=== PATIENT | male | born 1975 | race Caucasian/White ===

== ENCOUNTER 2016-08-27 12:04 | Emergency (ER) | payer OTHER ==
--- NOTE | 2016-08-27 14:51 | XR ---
EXAM TYPE: LUMBAR SPINE X RAY SERIES COMPARISON: 12/26/2014 HISTORY: Pain TECHNIQUE: three views are submitted. FINDINGS: Alignment is anatomic. The pedicles are intact. The transverse processes are intact. There is no s pondylolysis or spondylolisthesis. Hypertrophic changes of the spine noted. There is mild degenerati ve disc disease L5-S1. Facet arthropathy involving the lower lumbar spine noted. IMPRESSION: 1. At L5-S1 there is degenerative disc disease with facet arthropathy..
[2016-08-27 14:54] VITALS: BP 125/79; PULSE 63; RESP 18; TEMP 98
--- NOTE | 2016-08-27 14:59 | ED ---
Back Pain HPI - General Chief Complaint: Back Pain/Injury Stated Complaint: Unknown Bruise/Back Pain Time Seen by Provider: 08/27/16 14:16 Source: patient, RN notes reviewed Limitations: no limitations - History of Present Illness Initial Comments: Patient is a 40-year-old male with chief complaint of an unknown bruise over his lower spine. Patient reports that he is doing physical therapy for chronic lower back pain and therapist noticed it yesterday. Patient reports that he does have some pain that radiates down his legs. He denies any acute injury to cause the bruising. Patient states that the area is sensitive. He states that he has had no loss of bowel or bladder control and is able to ambulate. Patient reports that he took Motrin at home with little relief of the pain radiating down his legs. Patient denies any recent fever, chills, shortness of breath, chest pain, back pain, abdominal pain, nausea vomiting, numbness or tingling, dysuria or hematuria, constipation or diarrhea, headaches or visual changes, or any other current symptoms - Related Data Home Medications Medication Instructions Recorded Confirmed Lisinopril [Zestril] 40 mg PO DAILY 12/23/13 05/16/15 Gabapentin [Gabapentin] 800 mg PO QID 05/16/15 05/16/15 HYDROcodone/APAP 10-325MG [[place] 1 tab PO Q4HR PRN 05/16/15 05/16/15 10-325] amLODIPine BESYLATE [Amlodipine 10 mg PO DAILY 05/16/15 05/16/15 Besylate] carBAMazepine [carBAMazepine CHEW] 100 mg PO BID 05/16/15 05/16/15 Previous Rx's Medication Instructions Recorded Diazepam [Valium] 5 mg PO TID PRN #10 tab 12/23/13 Ibuprofen [Motrin] 800 mg PO Q8HR PRN #30 tab 12/23/13 Acetaminophen-Codeine 300-30mg 1 tab PO Q4H PRN #10 tablet 08/27/16 [Tylenol #3] Dexamethasone 0.75 mg PO DAILY #12 tab 08/27/16 Allergies Allergy/AdvReac Type Severity Reaction Status Date / Time No Known Allergies Allergy Verified 08/27/16 12:31 Review of Systems ROS Statement: Those systems with pertinent positive or pertinent negative responses have been documented in the HPI. ROS Other: All systems not noted in ROS Statement are negative. Past Medical History Past Medical History: Hypertension, Osteoarthritis (OA) Additional Past Medical History / Comment(s): chronic neck pain, trigeminal neuralgia, carpal tunnel History of Any Multi-Drug Resistant Organisms: None Reported Past Surgical History: Appendectomy Additional Past Surgical History / Comment(s): feet surgery, neck surgery Past Psychological History: Anxiety, Depression Smoking Status: Current every day smoker Past Alcohol Use History: Rare Past Drug Use History: Marijuana General Exam Limitations: no limitations General appearance: alert, in no apparent distress Head exam: Present: atraumatic, normocephalic, normal inspection Eye exam: Present: normal appearance, PERRL, EOMI. Absent: scleral icterus, conjunctival injection, periorbital swelling ENT exam: Present: normal exam, mucous membranes moist Neck exam: Present: normal inspection. Absent: tenderness, meningismus, lymphadenopathy Respiratory exam: Present: normal lung sounds bilaterally. Absent: respiratory distress, wheezes, rales, rhonchi, stridor Cardiovascular Exam: Present: regular rate, normal rhythm, normal heart sounds. Absent: systolic murmur, diastolic murmur, rubs, gallop, clicks GI/Abdominal exam: Present: soft, normal bowel sounds. Absent: distended, tenderness, guarding, rebound, rigid Extremities exam: Present: normal inspection, full ROM, normal capillary refill. Absent: tenderness, pedal edema, joint swelling, calf tenderness Back exam: Present: normal inspection, full ROM, tenderness (Patient reports tenderness over the lumbar spine.), other (Faint bruising over her lumbar spine approximately L5 through L2.) Neurological exam: Present: alert, oriented X3, CN II-XII intact Psychiatric exam: Present: normal affect, normal mood Skin exam: Present: warm, dry, intact, normal color. Absent: rash Course Vital Signs 08/27/16 08/27/16 12:27 14:53 Temperature 98.8 F 98.0 F Pulse Rate 66 63 Respiratory 17 18 Rate Blood Pressure 142/95 125/79 O2 Sat by Pulse 96 98 Oximetry Medical Decision Making - Medical Decision Making Patient is a 40-year-old male with chief complaint of an unknown bruise over his lower spine. Patient reports that he is doing physical therapy for chronic lower back pain and therapist noticed it yesterday. Patient reports that he does have some pain that radiates down his legs. He denies any acute injury to cause the bruising. Patient states that the area is sensitive. He states that he has had no loss of bowel or bladder control and is able to ambulate. Patient reports that he took Motrin at home with little relief of the pain radiating down his legs. Lumbar spine x-ray was obtained. There is evidence of irregularities at L5 through S1.. Patient has no saddle anesthesias or unable to ambulate. Patient was given a prescription for dexamethasone further radiculopathy as well as Tylenol 3 for pain. I discussed that are not sure where the bruising is came from. I did is I spent apply ice to the lower back. If this is a possibility of early shingles I discussed that they need to continue monitoring the area of any blistering to return the emergency Department her primary care provider once. - Radiology Data Radiology results: report reviewed L5 through S1 degenerative disc disease with facet arthropathy Disposition Clinical Impression: Degeneration of intervertebral disc at L5-S1 level, Superficial bruising of back Disposition: HOME SELF-CARE Condition: Good Instructions: Chronic Back Pain (ED) Additional Instructions: Patient advised to follow-up with physical therapy apply heat and ice over the area. Children emergency department if any alarming signs or symptoms occur. Prescriptions: Acetaminophen-Codeine 300-30mg [Tylenol #3] 1 tab PO Q4H PRN #10 tablet PRN Reason: Pain Dexamethasone 0.75 mg PO DAILY #12 tab Referrals: Brianne Jorge MD [Primary Care Provider] - 1-2 days Time of Disposition: 14:58
== END 2016-08-27 15:05 | disposition home or self-care (01) ==
LOC: EC 12:04
DX: S30.0XXA Contusion of lower back and pelvis, initial encounter (principal); M51.37 Other intervertebral disc degeneration, lumbosacral region; I10 Essential (primary) hypertension; F17.200 Nicotine dependence, unspecified, uncomplicated; Z79.899 Other long term (current) drug therapy; X58.XXXA Exposure to other specified factors, initial encounter
CPT/HCPCS: 72100; 99283

== ENCOUNTER → 2017-02-18 | Outpatient (CLI) | payer MEDICARE, OTHER ==
[2017-02-18 12:28] LABS: Blood Urea Nitrogen 15 mg/dL (9-20); Non-African American GFR(MDRD) 60 (>60 ml/min/1.73 sqM)
--- NOTE | 2017-02-19 01:40 | MR ---
EXAMINATION TYPE: MR lumbar spine wo con DATE OF EXAM: 02/18/2017 COMPARISON: NONE HISTORY: Lumbago TECHNIQUE: Multiplanar, multisequence images of the lumbar spine were acquired. Lumbar vertebra have normal alignment. Disc spaces are fairly well-maintained. There is slight decrea sed signal in the disks at L4-5 and L5-S1. There are small posterior central disc herniations at L3-4 and L5-S1. There is no paraspinal mass. There is developmentally adequate spinal canal. Sacroiliac joints appear normal. The neural foramina are widely patent. IMPRESSION: Small posterior lumbar disc herniations at L3-4 and L5-S1. No spinal stenosis.
--- NOTE | 2017-02-19 01:44 | MR ---
EXAMINATION TYPE: MR cervical spine wo/w con DATE OF EXAM: 02/18/2017 COMPARISON: 12/26/2014 HISTORY: cervicalgia TECHNIQUE: Multiplanar, multisequence images of the cervical spine were acquired utilizing 12 mL intravenous [place] avist gadolinium contrast. Diffusion weighted imaging was performed. Cervical vertebra have normal alignment. There is metal artifact from anterior fusion surgery at C4 C 5 C6 level. Detail is limited at this level due to metal artifact. There is a large posterior disc he rniation at C6-7 with narrowing of the spinal canal. There is no evidence of edema in the cervical sp inal cord. The canal is narrowed to 7 mm at C6-7. There is a small posterior disc bulge at C4-5. Brai nstem is intact. There is no sign of compression fracture. There is no pathologic enhancement. IMPRESSION: There is multilevel fusion surgery. There is a moderate sized posterior C6-7 cervical disc herniation and endplate spur formation with 7 mm moderate spinal stenosis. This is not changed in size compared to old exam. There is clearing of the cord edema at C6-7 level compared to old exam.
== END | disposition home or self-care (01) ==
LOC: RADMRIMAIN 11:39
PROVIDERS: ATTEND Psychiatry & Neurology Neurology
DX: M48.02 Spinal stenosis, cervical region (principal); M50.223 Other cervical disc displacement at C6-C7 level; M51.27 Other intervertebral disc displacement, lumbosacral region; Z98.1 Arthrodesis status
CPT/HCPCS: 82565; 84520; 72148; 72156; A9581

== ENCOUNTER 2017-11-22 11:37 | Emergency (ER) | payer MEDICARE, OTHER ==
[2017-11-22 11:55] VITALS: BP 147/94; PULSE 68; RESP 18; TEMP 98.5
--- NOTE | 2017-11-22 12:23 | ED ---
Skin/Abscess/FB HPI - General Chief complaint: Skin/Abscess/Foreign Body Stated complaint: Infection Time Seen by Provider: 11/22/17 12:02 Source: patient, RN notes reviewed, old records reviewed Mode of arrival: ambulatory Limitations: no limitations - History of Present Illness Initial comments: 2-year-old male chief complaint of paronychia on his left thumb. Patient reports that he noticed over the past day that he had some swelling and irritation over the corner of the nail bed. Patient reports that he has no streaking up the arm. States it feels like his stomach throbbing. He reports these have some pus coming from the area earlier today. For range of motion of the thumb. Patient denies any recent fever, chills, shortness of breath, chest pain, back pain, abdominal pain, nausea vomiting, numbness or tingling, dysuria or hematuria, constipation or diarrhea, headaches or visual changes, or any other current symptoms - Related Data Home Medications Medication Instructions Recorded Confirmed Lisinopril [Zestril] 40 mg PO DAILY 12/23/13 05/16/15 Gabapentin [Gabapentin] 800 mg PO QID 05/16/15 05/16/15 HYDROcodone/APAP 10-325MG [[place] 1 tab PO Q4HR PRN 05/16/15 05/16/15 10-325] amLODIPine BESYLATE [Amlodipine 10 mg PO DAILY 05/16/15 05/16/15 Besylate] carBAMazepine [carBAMazepine CHEW] 100 mg PO BID 05/16/15 05/16/15 Previous Rx's Medication Instructions Recorded Diazepam [Valium] 5 mg PO TID PRN #10 tab 12/23/13 Ibuprofen [Motrin] 800 mg PO Q8HR PRN #30 tab 12/23/13 Acetaminophen-Codeine 300-30mg 1 tab PO Q4H PRN #10 tablet 08/27/16 [Tylenol #3] Dexamethasone 0.75 mg PO DAILY #12 tab 08/27/16 Sulfamethox-Tmp 800-160Mg [Bactrim 1 tab PO Q12HR #14 tab 11/22/17 DS 800-160 mg] Allergies Allergy/AdvReac Type Severity Reaction Status Date / Time No Known Allergies Allergy Verified 11/22/17 11:56 Review of Systems ROS Statement: Those systems with pertinent positive or pertinent negative responses have been documented in the HPI. ROS Other: All systems not noted in ROS Statement are negative. Past Medical History Past Medical History: Hypertension, Osteoarthritis (OA) Additional Past Medical History / Comment(s): chronic neck pain, trigeminal neuralgia, carpal tunnel History of Any Multi-Drug Resistant Organisms: None Reported Past Surgical History: Appendectomy Additional Past Surgical History / Comment(s): feet surgery, neck surgery, electrostimulis device in upper back Past Psychological History: Anxiety, Depression Smoking Status: Current every day smoker Past Alcohol Use History: Rare Past Drug Use History: Marijuana General Exam - General Exam Comments Initial Comments: This is a 42-year-old male. Alert and oriented. No significant distress. Limitations: no limitations General appearance: alert, in no apparent distress Head exam: Present: atraumatic, normocephalic, normal inspection Eye exam: Present: normal appearance, PERRL, EOMI. Absent: scleral icterus, conjunctival injection, periorbital swelling ENT exam: Present: normal exam, mucous membranes moist Neck exam: Present: normal inspection. Absent: tenderness, meningismus, lymphadenopathy Respiratory exam: Present: normal lung sounds bilaterally. Absent: respiratory distress, wheezes, rales, rhonchi, stridor Cardiovascular Exam: Present: regular rate, normal rhythm, normal heart sounds. Absent: systolic murmur, diastolic murmur, rubs, gallop, clicks Left Forearm Wrist exam: Present: normal inspection, full ROM Hand Wrist exam: Present: normal inspection, full ROM, erythema (Some minor erythema over the left thumb nail bed consistent with paronychia.) Neuro motor exam: Present: wrist extension intact, thumb opposition intact, thumb IP flexion intact, thumb adduction intact, fingers 2-5 abduction intact Vascular: Present: normal capillary refill Neurological exam: Present: alert, oriented X3 Psychiatric exam: Present: normal affect, normal mood Course Vital Signs 11/22/17 11:52 Temperature 98.5 F Pulse Rate 68 Respiratory 18 Rate Blood Pressure 147/94 O2 Sat by Pulse 97 Oximetry Procedures - Incision & Drainage Site: upper extremity (Left thumb) I&D Drainage Obtained: Pus, Serous Culture Obtained?: Yes Patient Tolerated Procedure: well, no complications Medical Decision Making - Medical Decision Making Patient is a 42-year-old male chief complaint of erythema and pain over his left thumb near the nail. He is evidence of paronychia. I did perform incision and drainage. Culture obtained. We'll start the Patient on Bactrim his history of MRSA. Discussed warm soaks. Discussed appropriate follow-up with PCP. All questions answered and return parameters were discussed. Disposition Clinical Impression: Paronychia Disposition: HOME SELF-CARE Condition: Good Instructions: Paronychia (ED) Additional Instructions: Patient is to do warm soaks over the thumb. Take antibiotics. Keep the area clean and dry and use antibiotic ointment. Follow-up with primary care provider. Prescriptions: Sulfamethox-Tmp 800-160Mg [Bactrim DS 800-160 mg] 1 tab PO Q12HR #14 tab Is patient prescribed a controlled substance at d/c from ED?: No When asked, does pt state using other controlled substances?: No If prescribed controlled substance>3 days was MAPS reviewed?: No If opioid is for acute pain is fill amount 7 days or less?: No If Rx opioid, was Start Talking consent form obtained?: No Referrals: Brianne Jorge MD [Primary Care Provider] - 1-2 days Time of Disposition: 12:22
== END 2017-11-22 12:42 | disposition home or self-care (01) ==
LOC: EC 11:37
DX: L03.012 Cellulitis of left finger (principal); I10 Essential (primary) hypertension; F32.9 Major depressive disorder, single episode, unspecified; F41.9 Anxiety disorder, unspecified; F17.200 Nicotine dependence, unspecified, uncomplicated; Z79.899 Other long term (current) drug therapy
CPT/HCPCS: 10060; 87070; 87077; 87186; 87205; 99283

== ENCOUNTER → 2017-12-03 | Outpatient (CLI) | payer MEDICARE, OTHER ==
[2017-12-03 09:49] LABS: Basophils % (A) 1 %; Eosinophils % (A) 0 %; HCT 42.8 % (39.0-53.0); HGB 14.8 gm/dL (13.0-17.5); Lymphocytes # (A) 2.9 k/uL (1.0-4.8); Lymphocytes % (A) 40 %; MCH 31.2 pg (25.0-35.0); MCHC 34.5 g/dL (31.0-37.0); MCV 90.4 fL (80.0-100.0); Mean Platelet Volume 7.5; Monocytes # (A) 0.5 k/uL (0-1.0); Monocytes % (A) 7 %; Neutrophils # (A) 3.7 k/uL (1.3-7.7); Neutrophils % (A) 51 %; Platelet Count 221 k/uL (150-450); RBC 4.73 m/uL (4.30-5.90); RDW 13.9 % (11.5-15.5); WBC 7.3 k/uL (3.8-10.6)
== END | disposition home or self-care (01) ==
LOC: LABWHC1 09:08
PROVIDERS: ATTEND Physician Assistant
DX: G40.909 Epilepsy, unspecified, not intractable, without status epilepticus (principal)
CPT/HCPCS: 36415; 80156; 85025

== ENCOUNTER 2019-04-26 11:29 | Emergency (ER) | payer MEDICARE, OTHER ==
--- NOTE | 2019-04-26 12:23 | ED ---
ENT HPI - General Chief complaint: Dental/Oral Stated complaint: Abcess in mouth Time Seen by Provider: 04/26/19 11:46 Source: patient, RN notes reviewed Mode of arrival: ambulatory Limitations: no limitations - History of Present Illness Initial comments: 43-year-old male presents emergency Department chief complaint of left-sided jaw swelling. Patient states that it started last couple days. Patient states he has no dentition he states he's had TEETH removed. Patient denies fevers, chills. He states it does wax and wane in size. Patient denies any trismus. Patient denies any swelling, neck pain or neck stiffness. - Related Data Home Medications Medication Instructions Recorded Confirmed Lisinopril [Zestril] 40 mg PO DAILY 12/23/13 05/16/15 Gabapentin 800 mg PO QID 05/16/15 05/16/15 HYDROcodone/APAP 10-325MG [[place] 1 tab PO Q4HR PRN 05/16/15 05/16/15 10-325] amLODIPine BESYLATE [Amlodipine 10 mg PO DAILY 05/16/15 05/16/15 Besylate] carBAMazepine [carBAMazepine CHEW] 100 mg PO BID 05/16/15 05/16/15 Previous Rx's Medication Instructions Recorded Diazepam [Valium] 5 mg PO TID PRN #10 tab 12/23/13 Ibuprofen [Motrin] 800 mg PO Q8HR PRN #30 tab 12/23/13 Acetaminophen-Codeine 300-30mg 1 tab PO Q4H PRN #10 tablet 08/27/16 [Tylenol #3] Dexamethasone 0.75 mg PO DAILY #12 tab 08/27/16 Sulfamethox-Tmp 800-160Mg [Bactrim 1 tab PO Q12HR #14 tab 11/22/17 DS 800-160 mg] Amoxicillin/Potassium Clav 1 tab PO Q12HR #20 tab 04/26/19 [Augmentin 875-125 Tablet] Allergies Allergy/AdvReac Type Severity Reaction Status Date / Time No Known Allergies Allergy Verified 11/22/17 11:56 Review of Systems ROS Statement: Those systems with pertinent positive or pertinent negative responses have been documented in the HPI. ROS Other: All systems not noted in ROS Statement are negative. Past Medical History Past Medical History: Hypertension, Osteoarthritis (OA) Additional Past Medical History / Comment(s): chronic neck pain, trigeminal neuralgia, carpal tunnel History of Any Multi-Drug Resistant Organisms: MRSA Date of last positivie culture/infection: 11/22/17 MDRO Source:: finger Past Surgical History: Appendectomy Additional Past Surgical History / Comment(s): feet surgery, neck surgery, electrostimulis device in upper back Past Psychological History: Anxiety, Depression Smoking Status: Current every day smoker Past Alcohol Use History: Rare Past Drug Use History: Marijuana General Exam Limitations: no limitations General appearance: alert, in no apparent distress Head exam: Present: atraumatic, normocephalic, normal inspection Eye exam: Present: normal appearance, PERRL, EOMI. Absent: scleral icterus, conjunctival injection, periorbital swelling ENT exam: Present: mucous membranes moist, TM's normal bilaterally, normal external ear exam, other (Mild left-sided submandibular swelling, mild tenderness no erythema no trismus). Absent: normal exam, normal oropharynx (No dentition noted) Neck exam: Present: normal inspection, full ROM. Absent: tenderness, meningismus, lymphadenopathy Respiratory exam: Present: normal lung sounds bilaterally. Absent: respiratory distress, wheezes, rales, rhonchi, stridor Cardiovascular Exam: Present: regular rate, normal rhythm, normal heart sounds. Absent: systolic murmur, diastolic murmur, rubs, gallop, clicks Course Vital Signs 04/26/19 11:42 Temperature 97.7 F Pulse Rate 97 Respiratory 18 Rate Blood Pressure 147/100 O2 Sat by Pulse 97 Oximetry Medical Decision Making - Medical Decision Making Patient's symptoms are consistent with sialadneitis. Patient we treated with Augmentin, and we did discuss using hard sour candies to stimulate salivary gland. Patient will follow-up with primary care physician return for worsening symptoms. Disposition Clinical Impression: Sialadenitis Disposition: HOME SELF-CARE Condition: Stable Instructions (If sedation given, give patient instructions): Sialoadenitis (ED) Additional Instructions: Please return to the Emergency Department if symptoms worsen or any other concerns. Prescriptions: Amoxicillin/Potassium Clav [Augmentin 875-125 Tablet] 1 tab PO Q12HR #20 tab Is patient prescribed a controlled substance at d/c from ED?: No Referrals: Brianne Jorge MD [Primary Care Provider] - 1-2 days Time of Disposition: 12:22
[2019-04-26 12:40] VITALS: BP 102/76; PULSE 60; RESP 17; TEMP 98.7
== END 2019-04-26 12:32 | disposition home or self-care (01) ==
LOC: EC 11:29
DX: K11.20 Sialoadenitis, unspecified (principal); K08.109 Complete loss of teeth, unspecified cause, unspecified class; I10 Essential (primary) hypertension; M19.90 Unspecified osteoarthritis, unspecified site; G89.29 Other chronic pain; G50.0 Trigeminal neuralgia; F32.9 Major depressive disorder, single episode, unspecified; F41.9 Anxiety disorder, unspecified; F17.200 Nicotine dependence, unspecified, uncomplicated; Z79.899 Other long term (current) drug therapy; Z86.14 Personal history of Methicillin resistant Staphylococcus aureus infection; Z96.698 Presence of other orthopedic joint implants
CPT/HCPCS: 99283

== ENCOUNTER 2019-08-22 12:32 | Emergency (ER) | payer MEDICARE ==
[2019-08-22 12:57] VITALS: BP 157/99; PULSE 58; RESP 20; TEMP 98.4
--- NOTE | 2019-08-22 13:30 | ED ---
ENT HPI - General Chief complaint: ENT Stated complaint: poss strep throat/dental pain Time Seen by Provider: 08/22/19 13:16 Source: patient Mode of arrival: ambulatory Limitations: no limitations - History of Present Illness Initial comments: This 43-year-old white male presented clinic of some pain into his left lower jaw. He states that it is been intermittent in nature and a degree chronic but worse over the last 1 day. He has had all of his teeth removed but states that he can feel a piece of tooth or bone sticking out in his left lower jaw m edially. He currently is on amoxicillin for a diagnosis of strep throat last week. His throat has improved. He denies any fevers or chills. He has been taking his home morphine as needed for pain. No other complaints or modifying factors. He does not have a dentist as he states he is on disability and does not have dental coverage. - Related Data Home Medications Medication Instructions Recorded Confirmed Lisinopril [Zestril] 40 mg PO DAILY 12/23/13 05/16/15 Gabapentin 800 mg PO QID 05/16/15 05/16/15 HYDROcodone/APAP 10-325MG [[place] 1 tab PO Q4HR PRN 05/16/15 05/16/15 10-325] amLODIPine BESYLATE [Amlodipine 10 mg PO DAILY 05/16/15 05/16/15 Besylate] carBAMazepine [carBAMazepine CHEW] 100 mg PO BID 05/16/15 05/16/15 Previous Rx's Medication Instructions Recorded Diazepam [Valium] 5 mg PO TID PRN #10 tab 12/23/13 Ibuprofen [Motrin] 800 mg PO Q8HR PRN #30 tab 12/23/13 Acetaminophen-Codeine 300-30mg 1 tab PO Q4H PRN #10 tablet 08/27/16 [Tylenol #3] Dexamethasone 0.75 mg PO DAILY #12 tab 08/27/16 Sulfamethox-Tmp 800-160Mg [Bactrim 1 tab PO Q12HR #14 tab 11/22/17 DS 800-160 mg] Amoxicillin/Potassium Clav 1 tab PO Q12HR #20 tab 04/26/19 [Augmentin 875-125 Tablet] Clindamycin HCl 300 mg PO QID #40 cap 08/22/19 Allergies Allergy/AdvReac Type Severity Reaction Status Date / Time No Known Allergies Allergy Verified 08/22/19 12:57 Review of Systems ROS Statement: Those systems with pertinent positive or pertinent negative responses have been documented in the HPI. ROS Other: All systems not noted in ROS Statement are negative. Past Medical History Past Medical History: Hypertension, Osteoarthritis (OA) Additional Past Medical History / Comment(s): chronic neck pain, trigeminal neuralgia, carpal tunnel History of Any Multi-Drug Resistant Organisms: MRSA Date of last positivie culture/infection: 11/22/17 MDRO Source:: finger Past Surgical History: Appendectomy Additional Past Surgical History / Comment(s): feet surgery, neck surgery, electrostimulis device in upper back Past Psychological History: Anxiety, Depression Smoking Status: Current every day smoker Past Alcohol Use History: Rare Past Drug Use History: Marijuana General Exam Limitations: no limitations General appearance: alert, in no apparent distress ENT exam: Present: other (There is a small protrusion of a piece of bone or dentition from the left mandibular region intraorally and medially. There is slight tenderness to this area. There is no, swelling or intraoral abscess identified. The patient is otherwise edentulous. Posterior oropharynx is clear. No cervical lymphadenopathy or neck mass identified.) Neurological exam: Present: alert, oriented X3 Psychiatric exam: Present: normal affect, normal mood Skin exam: Present: intact. Absent: rash Course Vital Signs 08/22/19 12:54 Temperature 98.4 F Pulse Rate 58 L Respiratory 20 Rate Blood Pressure 157/99 O2 Sat by Pulse 99 Oximetry Medical Decision Making - Medical Decision Making The patient was seen and examined. This felt as though he may benefit from changing up in his antibiotics and will be placed on clindamycin and he is instructed to stop the amoxicillin. It is felt as though he should have close follow-up with a dentist and he will work on this. He has home pain medications to take as needed. Disposition Clinical Impression: Dentalgia Disposition: HOME SELF-CARE Condition: Good Prescriptions: Clindamycin HCl 300 mg PO QID #40 cap Is patient prescribed a controlled substance at d/c from ED?: No Referrals: Brianne Jorge MD [Primary Care Provider] - 1-2 days Time of Disposition: 13:30
--- NOTE | 2019-08-22 13:32 | ED ---
Disposition Clinical Impression: Dentalgia Disposition: HOME SELF-CARE Condition: Good Instructions (If sedation given, give patient instructions): Dental Abscess (ED), Toothache (ED) Prescriptions: Clindamycin HCl 300 mg PO QID #40 cap Is patient prescribed a controlled substance at d/c from ED?: No Referrals: Brianne Jorge MD [Primary Care Provider] - 1-2 days Time of Disposition: 13:32
== END 2019-08-22 13:58 | disposition home or self-care (01) ==
LOC: EC 12:32
DX: K08.89 Other specified disorders of teeth and supporting structures (principal); G50.0 Trigeminal neuralgia; G89.29 Other chronic pain; M54.2 Cervicalgia; I10 Essential (primary) hypertension; M19.90 Unspecified osteoarthritis, unspecified site; F17.200 Nicotine dependence, unspecified, uncomplicated; Z79.899 Other long term (current) drug therapy; Z86.14 Personal history of Methicillin resistant Staphylococcus aureus infection
CPT/HCPCS: 99283

== ENCOUNTER 2020-04-05 13:40 | Emergency (ER) | payer MEDICARE ==
[2020-04-05 13:50] VITALS: BP 137/83; PULSE 69; RESP 20; TEMP 98.1
--- NOTE | 2020-04-05 14:22 | ED ---
Extremity Problem HPI - General Chief complaint: Extremity Problem,Nontraumatic Stated complaint: infection in finger Time Seen by Provider: 04/05/20 14:07 Source: patient Mode of arrival: ambulatory Limitations: no limitations - History of Present Illness Initial comments: 44yo male presenting today for chief complaint of left middle finger pain and redness. Patient states yesterday he noticed some pain and redness near site of a hang nail. Patient states that it has been spontaneously draining some pus like fluid. States tender to touch on outer edge of nail. Denies fevers, chilld, general malaise, denies pain on pad of digit. Denies circumferential swelling of finger or spreading of redness, Denies decreased ROM. Patient appears well nontoxic on arrival. Denies DM hx - Related Data Home Medications Medication Instructions Recorded Confirmed lisinopriL [Zestril] 40 mg PO DAILY 12/23/13 05/16/15 Gabapentin 800 mg PO QID 05/16/15 05/16/15 HYDROcodone/APAP 10-325MG [[place] 1 tab PO Q4HR PRN 05/16/15 05/16/15 10-325] amLODIPine BESYLATE [Amlodipine 10 mg PO DAILY 05/16/15 05/16/15 Besylate] carBAMazepine [carBAMazepine CHEW] 100 mg PO BID 05/16/15 05/16/15 Previous Rx's Medication Instructions Recorded Ibuprofen [Motrin] 800 mg PO Q8HR PRN #30 tab 12/23/13 diazePAM [Valium] 5 mg PO TID PRN #10 tab 12/23/13 Acetaminophen-Codeine 300-30mg 1 tab PO Q4H PRN #10 tablet 08/27/16 [Tylenol #3] dexAMETHasone [Dexamethasone] 0.75 mg PO DAILY #12 tab 08/27/16 Sulfamethox-Tmp 800-160Mg [Bactrim 1 tab PO Q12HR #14 tab 11/22/17 DS 800-160 mg] Amoxicillin/Potassium Clav 1 tab PO Q12HR #20 tab 04/26/19 [Augmentin 875-125 Tablet] Clindamycin HCl 300 mg PO QID #40 cap 08/22/19 Cephalexin [Keflex] 500 mg PO Q6HR 7 Days #28 cap 04/05/20 Allergies Allergy/AdvReac Type Severity Reaction Status Date / Time No Known Allergies Allergy Verified 04/05/20 13:47 Review of Systems ROS Statement: Those systems with pertinent positive or pertinent negative responses have been documented in the HPI. ROS Other: All systems not noted in ROS Statement are negative. Past Medical History Past Medical History: Hypertension, Osteoarthritis (OA) Additional Past Medical History / Comment(s): chronic neck pain, trigeminal neuralgia, carpal tunnel History of Any Multi-Drug Resistant Organisms: MRSA Date of last positivie culture/infection: 11/22/17 MDRO Source:: finger Past Surgical History: Appendectomy Additional Past Surgical History / Comment(s): feet surgery, neck surgery, electrostimulis device in upper back Past Psychological History: Anxiety, Depression Past Alcohol Use History: Rare Past Drug Use History: Marijuana General Exam - General Exam Comments Initial Comments: General: The patient is awake and alert, in no distress Eye: Pupils are equal, round and reactive to light, extra-ocular movements are intact. No nystagmus. There is normal conjunctiva bilaterally. No signs of icterus. Cardiovascular: There is a regular rate and rhythm. No murmur, rub or gallop is appreciated. Respiratory: Lungs are clear to auscultation, respirations are non-labored, breath sounds are equal. No wheezes, stridor, rales, or rhonchi. Musculoskeletal: Normal ROM, no tenderness at the mCP, dip and pip joints of affected digit. Strength 5/5 at the MCP, DIP and PIP joints. Sensation intact. Radial pulses equal bilaterally 2+. Neurological: A&O x 3. CN II-XII intact grossly, There are no obvious motor or sensory deficits. Coordination appears grossly intact. Speech is normal. Skin: Skin is warm and dry and no rashes. Area of redness adjacent to the finger nail on the lateral ulnar aspect, no pad redness or swelling/or pain to palpation. patient has an area of scabbing. Patient has no fusiform swelling, no proximal redness. Psychiatric: Cooperative, appropriate mood & affect, normal judgment. Limitations: no limitations Course Vital Signs 04/05/20 13:46 Temperature 98.1 F Pulse Rate 69 Respiratory 20 Rate Blood Pressure 137/83 O2 Sat by Pulse 100 Oximetry Medical Decision Making - Medical Decision Making Clinical any suggestive a spontaneously draining paronychia. Patient recommended to perform soaks, take oral antibiotics and return for increasing redness/swelling or pain. Patient agreeable to care plan. Denies known drug allergies/DM. patient discharged appearing well after discussing case wtih Dr. Ann. Disposition Clinical Impression: Paronychia Disposition: HOME SELF-CARE Condition: Good Instructions (If sedation given, give patient instructions): Paronychia (ED) Additional Instructions: Please use medication as discussed. Please follow-up with family doctor in the next 2 days. Please return to emergency room if the symptoms increase or worsen or for any other concerns. Prescriptions: Cephalexin [Keflex] 500 mg PO Q6HR 7 Days #28 cap Is patient prescribed a controlled substance at d/c from ED?: No Referrals: Brianne Jorge MD [Primary Care Provider] - 1-2 days Time of Disposition: 14:22
== END 2020-04-05 14:29 | disposition home or self-care (01) ==
LOC: EC 13:40
DX: L03.012 Cellulitis of left finger (principal); I10 Essential (primary) hypertension; Z79.899 Other long term (current) drug therapy
CPT/HCPCS: 99283

== ENCOUNTER 2020-07-05 16:53 | Emergency (ER) | payer MEDICARE ==
[2020-07-05 17:05] VITALS: BP 130/87; PULSE 68; RESP 18; TEMP 98.3
[2020-07-05] MEDS ORDERED: TOBRAMYCIN 0.3% OPHTH DROPS 5 ML BTL RIGHT EYE STA (17:17)
--- NOTE | 2020-07-05 17:20 | ED ---
Eye Problem HPI - General Chief complaint: Eye Problems Stated complaint: Eye Swelling Time Seen by Provider: 07/05/20 17:06 Source: patient, RN notes reviewed Mode of arrival: ambulatory Limitations: no limitations - History of Present Illness Initial comments: 44-year-old male presents emergency Department chief complaint of right eye swelling. Patient states started a few days ago states that he noticed that worsened today. Patient states he initially just started with a stye. Patient states several eyelid is swollen denies any blurred vision he states there is some tearing, drainage at times. Patient denies any trauma no other complaints. - Related Data Home Medications Medication Instructions Recorded Confirmed lisinopriL [Zestril] 40 mg PO DAILY 12/23/13 05/16/15 Gabapentin 800 mg PO QID 05/16/15 05/16/15 HYDROcodone/APAP 10-325MG [[place] 1 tab PO Q4HR PRN 05/16/15 05/16/15 10-325] amLODIPine BESYLATE [Amlodipine 10 mg PO DAILY 05/16/15 05/16/15 Besylate] carBAMazepine [carBAMazepine CHEW] 100 mg PO BID 05/16/15 05/16/15 Previous Rx's Medication Instructions Recorded Ibuprofen [Motrin] 800 mg PO Q8HR PRN #30 tab 12/23/13 diazePAM [Valium] 5 mg PO TID PRN #10 tab 12/23/13 Acetaminophen-Codeine 300-30mg 1 tab PO Q4H PRN #10 tablet 08/27/16 [Tylenol #3] dexAMETHasone [Dexamethasone] 0.75 mg PO DAILY #12 tab 08/27/16 Sulfamethox-Tmp 800-160Mg [Bactrim 1 tab PO Q12HR #14 tab 11/22/17 DS 800-160 mg] Amoxicillin/Potassium Clav 1 tab PO Q12HR #20 tab 04/26/19 [Augmentin 875-125 Tablet] Clindamycin HCl 300 mg PO QID #40 cap 08/22/19 Cephalexin [Keflex] 500 mg PO Q6HR 7 Days #28 cap 04/05/20 Allergies Allergy/AdvReac Type Severity Reaction Status Date / Time No Known Allergies Allergy Verified 07/05/20 17:04 Review of Systems ROS Statement: Those systems with pertinent positive or pertinent negative responses have been documented in the HPI. ROS Other: All systems not noted in ROS Statement are negative. Past Medical History Past Medical History: Hypertension, Osteoarthritis (OA) Additional Past Medical History / Comment(s): chronic neck pain, trigeminal neuralgia, carpal tunnel History of Any Multi-Drug Resistant Organisms: MRSA Date of last positivie culture/infection: 11/22/17 MDRO Source:: finger Past Surgical History: Appendectomy Additional Past Surgical History / Comment(s): feet surgery, neck surgery, electrostimulis device in upper back Past Psychological History: Anxiety, Depression Smoking Status: Vaper Past Alcohol Use History: Rare Past Drug Use History: Marijuana General Exam Limitations: no limitations General appearance: alert, in no apparent distress Head exam: Present: atraumatic, normocephalic, normal inspection Eye exam: Present: PERRL, EOMI, conjunctival injection (Minimal right), periorbital swelling (Right superior eyelid swelling noted, internal sign noted). Absent: normal appearance, scleral icterus Pupils: Present: normal accommodation ENT exam: Present: normal exam, mucous membranes moist Neck exam: Present: normal inspection. Absent: tenderness, meningismus, lymphadenopathy Respiratory exam: Present: normal lung sounds bilaterally. Absent: respiratory distress, wheezes, rales, rhonchi, stridor Cardiovascular Exam: Present: regular rate, normal rhythm, normal heart sounds. Absent: systolic murmur, diastolic murmur, rubs, gallop, clicks Course Vital Signs 07/05/20 17:02 Temperature 98.3 F Pulse Rate 68 Respiratory 18 Rate Blood Pressure 130/87 O2 Sat by Pulse 98 Oximetry Medical Decision Making - Medical Decision Making Patient has internal sign the right with some blepharitis type changes. Patient has no global symptoms. Patient will be discharged in stable condition with Tobrex eyedrops, warm compresses and follow-up with ophthalmology if no improvement. Disposition Clinical Impression: Blepharitis, Internal hordeolum of right eye Disposition: HOME SELF-CARE Condition: Stable Instructions (If sedation given, give patient instructions): Dionisio (ED), Flora hoang (ED) Additional Instructions: Apply warm compresses as directed. Use Tobrex eyedrops 1 drop every 4 hours for 7 days.Please return to the Emergency Department if symptoms worsen or any other concerns. Is patient prescribed a controlled substance at d/c from ED?: No Referrals: Brianne Jorge MD [Primary Care Provider] - 1-2 days William Fontana MD [STAFF PHYSICIAN] - 1-2 days Time of Disposition: 17:20
== END 2020-07-05 17:41 | disposition home or self-care (01) ==
LOC: EC 16:53
DX: H00.021 Hordeolum internum right upper eyelid (principal); H01.001 Unspecified blepharitis right upper eyelid; I10 Essential (primary) hypertension; M19.90 Unspecified osteoarthritis, unspecified site; F41.9 Anxiety disorder, unspecified; F32.9 Major depressive disorder, single episode, unspecified; F17.290 Nicotine dependence, other tobacco product, uncomplicated; Z79.899 Other long term (current) drug therapy
CPT/HCPCS: 99283